=== PATIENT | male | born 1980 | race Caucasian/White ===

== ENCOUNTER 2018-02-18 15:44 | Inpatient (IN) | payer OTHER ==
[2018-02-18 17:13] VITALS: BMI 26.2
--- NOTE | 2018-02-18 20:19 | HP ---
CIWA Score - CIWA Score Nausea/Vomitin (vomiting x 8) Muscle Tremors: 4-Moderate,w/Arms Extend Anxiety: 4-Mod. Anxious/Guarded Agitation: 3 Paroxysmal Sweats: No Perspiration Orientation: 0-Oriented Tacttile Disturbances: 0-None Auditory Disturbances: 0-None Visual Disturbances: 0-None Headache: 0-None Present CIWA-Ar Total Score: 14 Admission ROS BHS - HPI Chief Complaint: Alcohol withdrawal symptoms Allergies/Adverse Reactions: Allergies Allergy/AdvReac Type Severity Reaction Status Date / Time No Known Allergies Allergy Verified 02/18/18 19:04 History of Present Illness: 37 years old male with 23 years of alcohol dependence is seeking admission to detox. Patient has been in previous detox, last at [place], [place]. He has medical history of Lung Cancer, Testicular Cancer, Depression and hypertension. Patient reports that he had head trauma a month ago from alcohol intoxication and was treated at [facility]. He denies suicide attempt and suicidal ideation at this time. This is his first admission to [facility]. Exam Limitations: No Limitations - Ebola screening Have you traveled outside of the country in the last 21 days: No Have you had contact with anyone from an Ebola affected area: No Have you been sick,other than usual withdrawal symptoms: No Do you have a fever: No - Review of Systems Constitutional: Malaise, Changes in sleep EENT: reports: No Symptoms Reported Respiratory: reports: No Symptoms reported Cardiac: reports: No Symptoms Reported GI: reports: Poor Appetite, Poor Fluid Intake, Vomiting (x 8), Abdominal cramping : reports: No Symptoms Reported Musculoskeletal: reports: No Symptoms Reported Integumentary: reports: Dryness Neuro: reports: Tremors Endocrine: reports: Flushing Hematology: reports: No Symptoms Reported Psychiatric: reports: Orientated x3, Anxious, Depressed Other Systems: Reviewed and Negative Patient History - Patient Medical History Hx Anemia: No Hx Asthma: No Hx Chronic Obstructive Pulmonary Disease (COPD): No Hx Cancer: Yes (LUNG CA & TESTICULAR CA) Hx Cardiac Disorders: No Hx Congestive Heart Failure: No Hx Hypertension: Yes (AMLODIPINE) Hx Hypercholesterolemia: No Hx Pacemaker: No HX Cerebrovascular Accident: No Hx Seizures: No Hx Dementia: No Hx Diabetes: No Hx Gastrointestinal Disorders: No Hx Liver Disease: No Hx Genitourinary Disorders: No Hx Sexually Transmitted Disorders: No Hx Renal Disease (ESRD): No Hx Thyroid Disease: No Hx Human Immunodeficiency Virus (HIV): No (NEGATIVE 2018) Hx Hepatitis C: No Hx Depression: Yes ([place]) Hx Suicide Attempt: Yes (DENIES SUICIDE ATTEMPT OR SUICIDAL IDEATION AT THIS TIME) Hx Bipolar Disorder: No Hx Schizophrenia: No - Patient Surgical History Past Surgical History: Yes Hx Neurologic Surgery: No Hx Cataract Extraction: No Hx Cardiac Surgery: No Hx Lung Surgery: Yes (DUE TO STAGE 4 CANCER) Hx Abdominal Surgery: No Hx Appendectomy: No Hx Cholecystectomy: No Hx Genitourinary Surgery: No Hx Orthopedic Surgery: No Other Surgical History: REMOVAL OF BOTH TESTICLES IN 1998 AND 2000 Anesthesia Reaction: No - PPD History Previous Implant?: Yes Documented Results: Negative w/o proof Implanted On Prior [facility] Admission?: No PPD to be Administered?: Yes - Reproductive History Patient is a Female of Child Bearing Age (11 -55 yrs old): No (MALE) - Smoking Cessation Smoking history: Current every day smoker Have you smoked in the past 12 months: Yes Aproximately how many cigarettes per day: 8 Hx Chewing Tobacco Use: No Initiated information on smoking cessation: Yes 'Breaking Loose' booklet given: 02/18/18 - Substance & Tx. History Hx Alcohol Use: Yes Hx Substance Use: Yes Substance Use Type: Marijuana Hx Substance Use Treatment: Yes ([place], [place]) - Substances Abused Alcohol Route: Oral Frequency: Daily Amount used: 13 OF 24 OZ BEER Age of first use: 12 Date of Last Use: 02/18/18 Family Disease History - Family Disease History Family History: Denies Admission Physical Exam S - Vital Signs Vital Signs: Vital Signs - 24 hr 02/18/18 02/18/18 17:12 20:06 Temperature 96.9 F L Pulse Rate 105 H 98 H Respiratory 18 18 Rate Blood Pressure 160/108 154/99 - Physical General Appearance: Yes: Moderate Distress, Tremorous, Irritable, Sweating, Anxious HEENTM: Yes: EOMI, Normal ENT Inspection, Normocephalic, Normal Voice, NINI Respiratory: Yes: Lungs Clear, Normal Breath Sounds, No Respiratory Distress, No Accessory Muscle Use Neck: Yes: Supple Breast: Yes: Breast Exam Deferred Cardiology: Yes: Tachycardia Abdominal: Yes: Normal Bowel Sounds, Soft Genitourinary: Yes: Within Normal Limits Back: Yes: Normal Inspection Musculoskeletal: Yes: Within Normal Limits Extremities: Yes: Tremors 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 NML intact, Alert Integumentary: Yes: Warm Lymphatic: Yes: Within Normal Limits - Diagnostic (1) HTN (hypertension) Current Visit: Yes Status: Chronic Qualifiers: Hypertension type: essential hypertension Qualified Code(s): I10 - Essential (primary) hypertension (2) Depression Current Visit: Yes Status: Chronic Qualifiers: Depression Type: unspecified Qualified Code(s): F32.9 - Major depressive disorder, single episode, unspecified (3) Alcohol dependence with uncomplicated withdrawal Current Visit: Yes Status: Chronic BHS Breath Alcohol Content Breath Alcohol Content: 0.055 Urine Drug Screen - Results Drug Screen Negative: No Urine Drug Screen Results: THC-Marijuana
[2018-02-18] MEDS ORDERED: guaiFENesin/D-METHORPHAN HB 10 ML UNIT-DOSE CUPS PO PRN (20:47)
[2018-02-18] MEDS ORDERED: MAGNESIUM CITRATE 300 ML BOTTLE PO PRN (20:47)
[2018-02-18] MEDS ORDERED: IBUPROFEN 400 MG TABLET (FP) PO PRN (20:47)
[2018-02-18] MEDS ORDERED: MENTHOL/PHENOL 1 EACH UD MM PRN (20:47)
[2018-02-18] MEDS ORDERED: ACETAMINOPHEN 325 MG TABLET (FP) PO PRN (20:47)
[2018-02-18] MEDS ORDERED: NICOTINE POLACRILEX 2 MG GUM BC PRN (20:47)
[2018-02-18] MEDS ORDERED: chlordiazePOXIDE HCL 25 MG CAPSULE PO PRN (20:47)
[2018-02-18] MEDS ORDERED: LOPERAMIDE HCL 2 MG CAPSULE PO PRN (20:47)
[2018-02-18] MEDS ORDERED: MAGNESIUM HYDROX 2400MG/30ML ORAL SUSPENSION 30 ML CUP PO PRN (20:47)
[2018-02-18] MEDS ORDERED: P-EPHED 60MG/TRIPROLIDI 2.5MG TABLET PO PRN (20:47)
[2018-02-18] MEDS ORDERED: MAG HYDROX/AL HYDROX/SIMETH 30 ML UNIT-DOSE CUP PO PRN (20:47)
[2018-02-18] MEDS ORDERED: cloNIDine HCL 0.1 MG TABLET PO ONE (20:59)
[2018-02-18] MEDS: THIAMINE HCL 100 MG TABLET (FP) PO SCH (21:31)
[2018-02-18] MEDS ORDERED: MELATONIN 5 MG TABLETS PO PRN (22:00)
[2018-02-18] MEDS: chlordiazePOXIDE HCL 25 MG CAPSULE PO SCH (22:03)
[2018-02-19] MEDS: chlordiazePOXIDE HCL 25 MG CAPSULE PO SCH ×4 (06:18→23:49)
[2018-02-19 10:10] LABS: HEMATOCRIT 38.8 % (35.4-49); HEMOGLOBIN 12.5 GM/dL (11.7-16.9); MCHC 32.3 g/dl (32.0-35.9); MEAN CELL VOLUME 83.5 fl (80-96); MEAN PLT VOLUME 7.2 fl (7.5-11.1); PLATELET COUNT 119 K/MM3 (134-434); RBC 4.65 M/mm3 (4.00-5.60); RDW 15.4 % (11.9-15.9); WHITE BLOOD COUNT 3.2 K/mm3 (4.0-10.0)
[2018-02-19 10:24] LABS: ALBUMIN 3.6 g/dl (3.4-5.0); ANION GAP 10 MMOL/L (8-16); BLOOD UREA NITROGEN 9 mg/dL (7-18); CALCIUM 8.3 mg/dL (8.5-10.1); CHLORIDE 105 mmol/L (98-107); CO2 27 mmol/L (21-32); GLUCOSE,RANDOM 90 mg/dL (74-106); POTASSIUM 3.9 mmol/L (3.5-5.1); SODIUM 142 mmol/L (136-145)
[2018-02-19 10:28] LABS: ALK PHOS 122 U/L (45-117); BILIRUBIN,TOTAL 0.6 mg/dL (0.2-1.0); CREATININE 1.3 mg/dL (0.7-1.3); SGOT/AST 81 U/L (15-37); SGPT/ALT 66 U/L (12-78); TOT PROT 7.3 g/dl (6.4-8.2)
[2018-02-19] MEDS: NICOTINE 14 MG/24 HOURS TOPICAL PATCH TD SCH (10:30)
[2018-02-19] MEDS: amLODIPine BESYLATE 2.5 MG TABLET (FP) PO SCH (10:30)
[2018-02-19] MEDS: PRENATAL VITAMINS W/ FOLIC ACID TABLET (FP) PO SCH (10:31)
--- NOTE | 2018-02-19 11:23 | EKG ---
Test Reason : Blood Pressure : / mmHG Vent. Rate : 069 BPM Atrial Rate : 069 BPM P-R Int : 126 ms QRS Dur : 088 ms QT Int : 398 ms P-R-T Axes : -07 060 061 degrees QTc Int : 426 ms NORMAL SINUS RHYTHM NORMAL ECG NO PREVIOUS ECGS AVAILABLE Confirmed by SOLO HUIZAR, KAMRON ([id number]) on 02/19/2018 11:22:37 AM Referred By: Nay Flanagan Confirmed By:KAMRON BANDA MD
--- NOTE | 2018-02-19 11:35 | PN ---
[facility] CIWA - CIWA Score Nausea/Vomitin-Mild Nausea/No Vomiting Muscle Tremors: 4-Moderate,w/Arms Extend Anxiety: 3 Agitation: 3 Paroxysmal Sweats: 1-Minimal Palms Moist Orientation: 1-Uncertain about Date Tacttile Disturbances: 1-Very Mild Itch/Numbness Auditory Disturbances: 0-None Visual Disturbances: 0-None Headache: 0-None Present CIWA-Ar Total Score: 14 BHS Progress Note (SOAP) Subjective: gi distress sweat tremor anxiety restlessness Objective: 02/19/18 11:36 Vital Signs Temperature 98.2 F 02/19/18 09:26 Pulse Rate 85 02/19/18 09:26 Respiratory Rate 19 02/19/18 09:26 Blood Pressure 134/89 02/19/18 09:26 O2 Sat by Pulse Oximetry (%) Laboratory Last Values WBC 3.2 K/mm3 (4.0-10.0) L 02/19/18 07:00 RBC 4.65 M/mm3 (4.00-5.60) 02/19/18 07:00 Hgb 12.5 GM/dL (11.7-16.9) 02/19/18 07:00 Hct 38.8 % (35.4-49) 02/19/18 07:00 MCV 83.5 fl (80-96) 02/19/18 07:00 MCH 27.0 pg (25.7-33.7) 02/19/18 07:00 MCHC 32.3 g/dl (32.0-35.9) 02/19/18 07:00 RDW 15.4 % (11.9-15.9) 02/19/18 07:00 Plt Count 119 K/MM3 (134-434) L 02/19/18 07:00 MPV 7.2 fl (7.5-11.1) L 02/19/18 07:00 Sodium 142 mmol/L (136-145) 02/19/18 07:00 Potassium 3.9 mmol/L (3.5-5.1) 02/19/18 07:00 Chloride 105 mmol/L (98-107) 02/19/18 07:00 Carbon Dioxide 27 mmol/L (21-32) 02/19/18 07:00 Anion Gap 10 MMOL/L (8-16) 02/19/18 07:00 BUN 9 mg/dL (7-18) 02/19/18 07:00 Creatinine 1.3 mg/dL (0.7-1.3) 02/19/18 07:00 Creat Clearance w eGFR > 60 (>60) 02/19/18 07:00 Random Glucose 90 mg/dL (74-106) 02/19/18 07:00 Calcium 8.3 mg/dL (8.5-10.1) L 02/19/18 07:00 Total Bilirubin 0.6 mg/dL (0.2-1.0) 02/19/18 07:00 AST 81 U/L (15-37) H 02/19/18 07:00 ALT 66 U/L (12-78) 02/19/18 07:00 Alkaline Phosphatase 122 U/L (45-117) H 02/19/18 07:00 Total Protein 7.3 g/dl (6.4-8.2) 02/19/18 07:00 Albumin 3.6 g/dl (3.4-5.0) 02/19/18 07:00 RPR Titer Nonreactive (NONREACTIVE) 02/19/18 07:00 lab noted Assessment: 02/19/18 11:37 withdrawal sx Plan: continue detox
[2018-02-19] MEDS: RANITIDINE HCL 150 MG TABLET (FP) PO SCH ×2 (13:21→23:48)
--- NOTE | 2018-02-19 17:53 | CONSULT ---
[facility] Psychiatric Consult - Data Date of interview: 02/19/18 Admission source: [facility] Identifying data: First admission to [facility] for this 37 y/o male self-referred for detoxification treatment for alcohol dependence.Patient is single without dependents,homeless,unemployed and supported on [facility] benefits. Substance Abuse History: Confirmed by patient in this session.Details in this [facility] report : Smoking history: Current every day smoker. Have you smoked in the past 12 months: Yes. Aproximately how many cigarettes per day: 8. Hx Chewing Tobacco Use: No. Initiated information on smoking cessation: Yes. 'Breaking Loose' booklet given: 02/18/18. - Substance & Tx. History. Hx Alcohol Use: Yes. Hx Substance Use: Yes. Substance Use Type: Marijuana. Hx Substance Use Treatment: Yes ([place], [place]). - Substances Abused. * * Alcohol. Route: Oral. Frequency: Daily. Amount used: 13 OF 24 OZ BEER. Age of first use: 12. Date of Last Use: 02/18/18 Medical History: Significant for hypertension,treatment for lung cancer ( surgery done),testicular cancer (ablation of both testicles and a recent history of head trauma (accidental fall during ETOH intoxication). Psychiatric History: No reported history of psychiatric hospitalizations.Patient reports that he is currently prescribed cymbalta 120 mg /day (by his oncologist).Mr Burr reports that he has no contact with psychiatrists (was released from halfway less than two months ago after serving a 11-month sentence).Was treated in halfway with duloxetine as well.Has hbeen on that medication for about seven consecutive years.Patient denies history of suicide attempts. Physical/Sexual Abuse/Trauma History: Patient denies history of abuse.Heavy stressors : serious medical illness (cancer),homelessness,finacial difficulties, absence of vocational skills and unemployment. Additional Comment: Urine Drug Screen Results: THC-Marijuana.Noted. Mental Status Exam - Mental Status Exam Alert and Oriented to: Time, Place, Person Cognitive Function: Good Patient Appearance: Well Groomed Mood: Withdrawn, Apprehensive Affect: Mood Congruent Patient Behavior: Fatigued, Appropriate, Cooperative Speech Pattern: Clear, Appropriate Voice Loudness: Normal Thought Process: Intact, Goal Oriented Thought Disorder: Not Present Hallucinations: Denies Suicidal Ideation: Denies Homicidal Ideation: Denies Insight/Judgement: Poor Sleep: Well Appetite: Good Muscle strength/Tone: Normal Gait/Station: Normal Psychiatric Findings - Problem List (Gonzales 1, 2,3) (1) Alcohol dependence with uncomplicated withdrawal Current Visit: Yes Status: Acute (2) Cannabis dependence Current Visit: Yes Status: Acute (3) Nicotine dependence Current Visit: Yes Status: Acute (4) Substance induced mood disorder Current Visit: Yes Status: Acute (5) Depressive disorder Current Visit: Yes Status: Chronic - Initial Treatment Plan Initial Treatment Plan: Psychoeducation.Sleep hygiene.Detoxification in progress.Support.Resume duloxetine 120 mg po daily (confirmed by pharmacy claims of 02/09/18 at [facility]).Side effects/benefits discussed with the patient.Mr Tamayo agrees to this careplan.Observation.
[2018-02-19] MEDS: THIAMINE HCL 100 MG TABLET (FP) PO SCH (23:48)
[2018-02-20] MEDS: chlordiazePOXIDE HCL 25 MG CAPSULE PO SCH ×3 (05:59→17:40)
[2018-02-20] MEDS: PRENATAL VITAMINS W/ FOLIC ACID TABLET (FP) PO SCH (10:39)
[2018-02-20] MEDS: RANITIDINE HCL 150 MG TABLET (FP) PO SCH ×2 (10:39→22:43)
[2018-02-20] MEDS: NICOTINE 14 MG/24 HOURS TOPICAL PATCH TD SCH (10:40)
[2018-02-20] MEDS: amLODIPine BESYLATE 2.5 MG TABLET (FP) PO SCH (10:40)
[2018-02-20] MEDS: DULoxetine HCL 60 MG CAPSULE.DR PO SCH (10:40)
--- NOTE | 2018-02-20 14:07 | PN ---
[facility] CIWA - CIWA Score Nausea/Vomitin-No Nausea/No Vomiting Muscle Tremors: 4-Moderate,w/Arms Extend Anxiety: 3 Agitation: 3 Paroxysmal Sweats: 1-Minimal Palms Moist Orientation: 0-Oriented Tacttile Disturbances: 1-Very Mild Itch/Numbness Auditory Disturbances: 0-None Visual Disturbances: 0-None Headache: 0-None Present CIWA-Ar Total Score: 12 BHS Progress Note (SOAP) Subjective: tremor sweat restlessness irritable Objective: 02/20/18 14:08 Vital Signs Temperature 98.2 F 02/20/18 13:15 Pulse Rate 80 02/20/18 13:15 Respiratory Rate 18 02/20/18 13:15 Blood Pressure 137/84 02/20/18 13:15 O2 Sat by Pulse Oximetry (%) Laboratory Last Values WBC 3.2 K/mm3 (4.0-10.0) L 02/19/18 07:00 RBC 4.65 M/mm3 (4.00-5.60) 02/19/18 07:00 Hgb 12.5 GM/dL (11.7-16.9) 02/19/18 07:00 Hct 38.8 % (35.4-49) 02/19/18 07:00 MCV 83.5 fl (80-96) 02/19/18 07:00 MCH 27.0 pg (25.7-33.7) 02/19/18 07:00 MCHC 32.3 g/dl (32.0-35.9) 02/19/18 07:00 RDW 15.4 % (11.9-15.9) 02/19/18 07:00 Plt Count 119 K/MM3 (134-434) L 02/19/18 07:00 MPV 7.2 fl (7.5-11.1) L 02/19/18 07:00 Sodium 142 mmol/L (136-145) 02/19/18 07:00 Potassium 3.9 mmol/L (3.5-5.1) 02/19/18 07:00 Chloride 105 mmol/L (98-107) 02/19/18 07:00 Carbon Dioxide 27 mmol/L (21-32) 02/19/18 07:00 Anion Gap 10 MMOL/L (8-16) 02/19/18 07:00 BUN 9 mg/dL (7-18) 02/19/18 07:00 Creatinine 1.3 mg/dL (0.7-1.3) 02/19/18 07:00 Creat Clearance w eGFR > 60 (>60) 02/19/18 07:00 Random Glucose 90 mg/dL (74-106) 02/19/18 07:00 Calcium 8.3 mg/dL (8.5-10.1) L 02/19/18 07:00 Total Bilirubin 0.6 mg/dL (0.2-1.0) 02/19/18 07:00 AST 81 U/L (15-37) H 02/19/18 07:00 ALT 66 U/L (12-78) 02/19/18 07:00 Alkaline Phosphatase 122 U/L (45-117) H 02/19/18 07:00 Total Protein 7.3 g/dl (6.4-8.2) 02/19/18 07:00 Albumin 3.6 g/dl (3.4-5.0) 02/19/18 07:00 RPR Titer Nonreactive (NONREACTIVE) 02/19/18 07:00 HIV 1&2 Antibody Screen Negative 02/19/18 07:00 HIV P24 Antigen Negative 02/19/18 07:00 lab noted Assessment: 02/20/18 14:10 withdrawal sx Plan: continue detox
[2018-02-20] MEDS: THIAMINE HCL 100 MG TABLET (FP) PO SCH (22:43)
[2018-02-20] MEDS: chlordiazePOXIDE 5 MG CAPSULE PO SCH (22:43)
[2018-02-21] MEDS: chlordiazePOXIDE 5 MG CAPSULE PO SCH ×3 (05:40→17:15)
[2018-02-21] MEDS ORDERED: hydrOXYzine PAMOATE 25 MG CAPSULE (FP) PO PRN (09:54)
[2018-02-21] MEDS: PRENATAL VITAMINS W/ FOLIC ACID TABLET (FP) PO SCH (10:29)
[2018-02-21] MEDS: amLODIPine BESYLATE 2.5 MG TABLET (FP) PO SCH (10:29)
[2018-02-21] MEDS: DULoxetine HCL 60 MG CAPSULE.DR PO SCH (10:29)
[2018-02-21] MEDS: RANITIDINE HCL 150 MG TABLET (FP) PO SCH ×2 (10:29→23:06)
[2018-02-21] MEDS: NICOTINE 14 MG/24 HOURS TOPICAL PATCH TD SCH (10:31)
--- NOTE | 2018-02-21 12:18 | PN ---
BHS Progress Note (SOAP) Subjective: sweats , increasing anxiety Objective: 02/21/18 12:17 Vital Signs Temperature 97.2 F L 02/21/18 09:42 Pulse Rate 108 H 02/21/18 09:42 Respiratory Rate 16 02/21/18 09:42 Blood Pressure 143/93 02/21/18 09:42 O2 Sat by Pulse Oximetry (%) 97% 02/21/18 12:24 Laboratory Tests 02/19/18 02/19/18 02/19/18 07:00 07:00 07:00 WBC 3.2 L RBC 4.65 Hgb 12.5 Hct 38.8 MCV 83.5 MCH 27.0 MCHC 32.3 RDW 15.4 Plt Count 119 L MPV 7.2 L Sodium 142 Potassium 3.9 Chloride 105 Carbon Dioxide 27 Anion Gap 10 BUN 9 Creatinine 1.3 Creat Clearance w eGFR > 60 Random Glucose 90 Calcium 8.3 L Total Bilirubin 0.6 AST 81 H ALT 66 Alkaline Phosphatase 122 H Total Protein 7.3 Albumin 3.6 RPR Titer HIV 1&2 Antibody Screen Negative HIV P24 Antigen Negative 02/19/18 07:00 WBC RBC Hgb Hct MCV MCH MCHC RDW Plt Count MPV Sodium Potassium Chloride Carbon Dioxide Anion Gap BUN Creatinine Creat Clearance w eGFR Random Glucose Calcium Total Bilirubin AST ALT Alkaline Phosphatase Total Protein Albumin RPR Titer Nonreactive HIV 1&2 Antibody Screen HIV P24 Antigen pt aox3 in nad ambulating well lungs clear to a/p cor tachy 104/m mo m r or gallop Assessment: 02/21/18 12:29 withdrawal sx's anxiety Plan: cont. detox increase fluids clonidine 0.1mg now
[2018-02-21] MEDS ORDERED: cloNIDine HCL 0.1 MG TABLET PO ONE (12:40)
[2018-02-21] MEDS: THIAMINE HCL 100 MG TABLET (FP) PO SCH (23:06)
[2018-02-21] MEDS: chlordiazePOXIDE HCL 10 MG CAPSULE PO SCH (23:07)
[2018-02-22] MEDS: chlordiazePOXIDE HCL 10 MG CAPSULE PO SCH ×2 (05:35→10:54)
--- NOTE | 2018-02-22 08:53 | DS ---
[facility] Detox Discharge Summary Admission Date: 02/18/18 Discharge Date: 02/22/18 - History Present History: Alcohol Dependence Additional Comments: 37 years old male admitted on 02/18/18 for alcohol withdrawal sx completed alcohol withdrawal sx tolerated well denies alcohol withdrawal sx alert oriented x 3 no acute distress [facility] - Physical Exam Results Vital Signs: Vital Signs Temperature 97.5 F L 02/22/18 06:00 Pulse Rate 65 02/22/18 06:00 Respiratory Rate 02/22/18 06:00 Blood Pressure 112/74 02/22/18 06:00 O2 Sat by Pulse Oximetry (%) Pertinent Admission Physical Exam Findings: [facility] Hospital Course: Detox Protocol Followed, Detoxed Safely, Responded well, Discharged Condition Good, Rehab Referral Accepted Patient has Accepted a Rehab Referral to: [facility] - Medication Discharge Medications: Ambulatory Orders Amlodipine Besylate [Norvasc -] 2.5 mg PO DAILY 02/18/18 Duloxetine HCl [Cymbalta] 120 mg PO DAILY 02/18/18 - Diagnosis (1) Substance induced mood disorder Current Visit: Yes Status: Suspected (2) Alcohol dependence with uncomplicated withdrawal Current Visit: Yes Status: Acute (3) HTN (hypertension) Current Visit: Yes Status: Chronic Qualifiers: Hypertension type: essential hypertension Qualified Code(s): I10 - Essential (primary) hypertension (4) Nicotine dependence Current Visit: Yes Status: Acute Qualifiers: Nicotine product type: cigarettes Substance use status: in withdrawal Qualified Code(s): F17.213 - Nicotine dependence, cigarettes, with withdrawal - AMA Did Patient Leave Against Medical Advice: No
[2018-02-22] MEDS: PRENATAL VITAMINS W/ FOLIC ACID TABLET (FP) PO SCH (10:53)
[2018-02-22] MEDS: amLODIPine BESYLATE 2.5 MG TABLET (FP) PO SCH (10:53)
[2018-02-22] MEDS: DULoxetine HCL 60 MG CAPSULE.DR PO SCH (10:53)
[2018-02-22] MEDS: RANITIDINE HCL 150 MG TABLET (FP) PO SCH (10:53)
[2018-02-22] MEDS: NICOTINE 14 MG/24 HOURS TOPICAL PATCH TD SCH (10:54)
[2018-02-22 13:57] VITALS: BP 145/85; PULSE 74; TEMP 96.3
== END 2018-02-22 03:17 | disposition home or self-care (01) | DRG 897 ==
LOC: YASAS 15:44 → Y6N 20:12
PROC: HZ2ZZZZ Detoxification Services for Substance Abuse Treatment (ICD-10-PCS; principal; 2018-02-18)
DX: F10.230 Alcohol dependence with withdrawal, uncomplicated (principal); F12.20 Cannabis dependence, uncomplicated; F17.213 Nicotine dependence, cigarettes, with withdrawal; F19.24 Other psychoactive substance dependence with psychoactive substance-induced mood disorder; F32.9 Major depressive disorder, single episode, unspecified; I10 Essential (primary) hypertension; Z85.118 Personal history of other malignant neoplasm of bronchus and lung; Z85.47 Personal history of malignant neoplasm of testis; Z91.5 Personal history of self-harm; Z90.79 Acquired absence of other genital organ(s)
CPT/HCPCS: 36415; 80053; 85027; 86593; 87389; 93005; 93010; J0735

== ENCOUNTER 2018-05-15 15:30 | Inpatient (IN) | payer OTHER ==
[2018-05-15 21:14] VITALS: BMI 27.0
--- NOTE | 2018-05-16 00:01 | HP ---
"CIWA Score Nausea/Vomitin-Mild Nausea/No Vomiting Muscle Tremors: 4-Moderate,w/Arms Extend Anxiety: 1-Mildly Anxious Agitation: 4-Moderately Restless Paroxysmal Sweats: 1-Minimal Palms Moist (Facial moisture) Orientation: 0-Oriented Tacttile Disturbances: 0-None Auditory Disturbances: 0-None Visual Disturbances: 0-None Headache: 2-Mild CIWA-Ar Total Score: 13 - Admission Criteria OASAS Guidelines: Admission for Medically Managed Detox: Requires at least one of the followin. CIWA greater than 12 2. Seizures within the past 24 hours 3. Delirium tremens within the past 24 hours 4. Hallucinations within the past 24 hours 5. Acute intervention needed for co occurring medical disorder 6. Acute intervention needed for co occurring psychiatric disorder 7. Severe withdrawal that cannot be handled at a lower level of care (continued vomiting, continued diarrhea, abnormal vital signs) requiring intravenous medication and/or fluids 8. Patient presents the following: CIWA greater than 12 Admission Criteria Met: Admission criteria met Admission ROS [facility] Chief Complaint: Hx alcohol withdrawal. Allergies/Adverse Reactions: Allergies Allergy/AdvReac Type Severity Reaction Status Date / Time No Known Allergies Allergy Verified 05/15/18 21:40 History of Present Illness: Alcohol use at age 13. Nicotine use at age 13 (down to 5 cig/day) Marijuana use at age 14. Uses 3 x/wk. Lung and testicular Cancer at age [age] w/ orchiectomy and partial (L) lobectomy and (R) wedge resection. Being f/u at [facility]. (R) chest internal port for chemo. Not currently on chemo. No flush needed for another 40 days. Feel and scraped (R) hand, (R) knee and bruised (L) hand. Hx: HTN on [facility] Search Terms: Bishop Tamayo, 1980 Search Date: 05/16/2018 12:00:35 AM The Drug Utilization Report below displays all of the controlled substance prescriptions, if any, that your patient has filled in the last twelve months. The information displayed on this report is compiled from pharmacy submissions to the Department, and accurately reflects the information as submitted by the pharmacies. This report was requested by: Karen Barnes | Reference #: [id number] Others' Prescriptions Patient Name: Bishop Tamayo Date: 1980 Address: [address] [place] [address] Sex: Male Rx Written Rx Dispensed Drug Quantity Days Supply Prescriber Name 03/10/2018 03/10/2018 oxycodone hcl 5 mg tablet 20 4 EduardoJacob garza Patient Name: Bishop Tamayo Date: 1980 Address: [address] [place] [address] Sex: Male Rx Written Rx Dispensed Drug Quantity Days Supply Prescriber Name 11/14/2017 11/14/2017 testosterone cyp 200 mg/ml 2 30 Isabela Castillo (M D ) 11/11/2017 11/11/2017 testosterone cyp 200 mg/ml 2 30 Isabela Castillo (M D ) 08/14/2017 08/15/2017 testosterone cyp 200 mg/ml 2 28 Isabela Castillo (M D ) Exam Limitations: No Limitations - Ebola screening Have you traveled outside of the country in the last 21 days: No (N) Have you had contact with anyone from an Ebola affected area: No Have you been sick,other than usual withdrawal symptoms: No Do you have a fever: No - Review of Systems Constitutional: Chills, Diaphoresis EENT: reports: No Symptoms Reported Respiratory: reports: No Symptoms reported, Other Cardiac: reports: No Symptoms Reported GI: reports: Nausea : reports: No Symptoms Reported Musculoskeletal: reports: Joint Pain ((R) knee pain - fell 04/14/18,) Integumentary: reports: Bruising (Scrape (R) knee and (R) hand), Other ((R) chest internal port for chemo. Not currently on chemo.) Neuro: reports: Headache, Tremors Endocrine: reports: Increased Thirst Hematology: reports: Blood Clots (5 years ago: Legs and PE) Psychiatric: reports: Judgement Intact, Mood/Affect Appropiate, Orientated x3, Agitated, Anxious, Depressed (Denies thoughts of harming self or others) Patient History - Patient Medical History Hx Anemia: No Hx Asthma: No Hx Chronic Obstructive Pulmonary Disease (COPD): No Hx Cancer: Yes (LUNG CA & TESTICULAR CA) Hx Cardiac Disorders: No Hx Congestive Heart Failure: No Hx Hypertension: Yes (AMLODIPINE) Hx Hypercholesterolemia: No Hx Pacemaker: No HX Cerebrovascular Accident: No Hx Seizures: No Hx Dementia: No Hx Diabetes: No Hx Gastrointestinal Disorders: No Hx Liver Disease: No Hx Genitourinary Disorders: No Hx Sexually Transmitted Disorders: No Hx Renal Disease (ESRD): No Hx Thyroid Disease: No Hx Human Immunodeficiency Virus (HIV): No (NEGATIVE 2018) Hx Hepatitis C: No Hx Depression: Yes (SYMBALTA) Hx Suicide Attempt: Yes (DENIES SUICIDE ATTEMPT OR SUICIDAL IDEATION AT THIS TIME) Hx Bipolar Disorder: No Hx Schizophrenia: No - Patient Surgical History Past Surgical History: Yes Hx Neurologic Surgery: No Hx Cataract Extraction: No Hx Cardiac Surgery: No Hx Lung Surgery: Yes (DUE TO STAGE 4 CANCER) Hx Abdominal Surgery: No Hx Appendectomy: No Hx Cholecystectomy: No Hx Genitourinary Surgery: No Hx Orthopedic Surgery: No Other Surgical History: REMOVAL OF BOTH TESTICLES IN 1998 AND 2000 Anesthesia Reaction: No - PPD History Previous Implant?: Yes Documented Results: Negative w/proof Implanted On Prior [facility] Admission?: Yes Date: 02/20/18 PPD to be Administered?: No - Smoking Cessation Smoking history: Current every day smoker Have you smoked in the past 12 months: Yes Aproximately how many cigarettes per day: 8 Hx Chewing Tobacco Use: No Initiated information on smoking cessation: Yes 'Breaking Loose' booklet given: 05/16/18 - Substance & Tx. History Hx Alcohol Use: Yes Hx Substance Use: Yes Substance Use Type: Alcohol, Marijuana Hx Substance Use Treatment: Yes (rehab) - Substances Abused Alcohol Route: Oral Frequency: Daily Amount used: LIQUOR- 2 PINTS, BEER- 1/2 CASE Age of first use: 13 Date of Last Use: 05/15/18 Marijuana/Hashish Route: Smoking Frequency: 1-2 times per week Age of first use: 14 Date of Last Use: 05/15/18 Admission Physical Exam BHS - Vital Signs Vital Signs: Vital Signs - 24 hr 05/15/18 21:12 Temperature 96.5 F L Pulse Rate 88 Respiratory 18 Rate Blood Pressure 127/77 - Physical General Appearance: Yes: Appropriately Dressed, Mild Distress, Tremorous, Sweating, Anxious HEENTM: Yes: EOMI, Hearing grossly Normal, Normal ENT Inspection, Normal Voice, NINI Respiratory: Yes: Lungs Clear, Normal Breath Sounds, No Respiratory Distress, Surgical Scar Neck: Yes: No masses,lesions,Nodules, Supple Breast: Yes: Breast Exam Deferred Cardiology: Yes: Regular Rhythm, Regular Rate, S1, S2 Abdominal: Yes: Flat, Soft, Increased Bowel Sounds, Tenderness (RUQ tenderness upon deep palpation. No guarding or rebound tenderness) Genitourinary: Yes: Within Normal Limits Back: Yes: Normal Inspection Musculoskeletal: Yes: full range of Motion, Gait Steady (but favoring (R) leg), Joint swelling ((R) knee some swelling. FROM and FWB), Other (Increased ecchymosis (L) palm and wrist. FROM. No crepitus. 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 Superficial abrasions (R) hand and (R) knee w/o drainage) Lymphatic: Yes: Within Normal Limits - Diagnostic (1) Alcohol dependence with uncomplicated withdrawal Current Visit: Yes Status: Acute (2) Nicotine dependence Current Visit: Yes Status: Chronic Qualifiers: Nicotine product type: cigarettes Substance use status: in withdrawal Qualified Code(s): F17.213 - Nicotine dependence, cigarettes, with withdrawal (3) Cannabis dependence Current Visit: Yes Status: Chronic (4) HTN (hypertension) Current Visit: Yes Status: Chronic Qualifiers: Hypertension type: essential hypertension Qualified Code(s): I10 - Essential (primary) hypertension (5) Abrasion Current Visit: Yes Status: Acute Comment: Superficial abrasion (R) hand and (R) knee. FROM (6) Presence of other vascular implants and grafts Current Visit: Yes Status: Chronic Comment: Chemo port (R) subclavain/chest area. (7) Personal history of other malignant neoplasm of bronchus and lung Current Visit: No Status: Inactive Comment: S/p partial lobectomy and wedge resection. (8) Personal history of malignant neoplasm of testis Current Visit: No Status: Inactive Comment: S/p orchiectomy Cleared for Admission [facility] - Detox or Rehab [facility] Level of Care: Medically Managed Detox Regimen/Protocol: Librium BHS Breath Alcohol Content Breath Alcohol Content: 0 Urine Drug Screen - Results Drug Screen Negative: No Urine Drug Screen Results: THC-Marijuana"
[2018-05-16] MEDS ORDERED: chlordiazePOXIDE HCL 25 MG CAPSULE PO ONE (00:37)
[2018-05-16] MEDS ORDERED: NICOTINE POLACRILEX 2 MG GUM BC PRN (00:37)
[2018-05-16] MEDS ORDERED: MENTHOL/PHENOL 1 EACH UD MM PRN (00:37)
[2018-05-16] MEDS ORDERED: MAGNESIUM CITRATE 300 ML BOTTLE PO PRN (00:37)
[2018-05-16] MEDS ORDERED: LOPERAMIDE HCL 2 MG CAPSULE PO PRN (00:37)
[2018-05-16] MEDS ORDERED: MAG HYDROX/AL HYDROX/SIMETH 30 ML UNIT-DOSE CUP PO PRN (00:37)
[2018-05-16] MEDS ORDERED: MAGNESIUM HYDROX 2400MG/30ML ORAL SUSPENSION 30 ML CUP PO PRN (00:37)
[2018-05-16] MEDS: BACITRACIN 0.9 GM PACKET TP SCH ×3 (01:08→22:27)
[2018-05-16] MEDS: chlordiazePOXIDE HCL 25 MG CAPSULE PO SCH ×4 (06:00→22:16)
[2018-05-16] MEDS: PRENATAL VITAMINS W/ FOLIC ACID TABLET (FP) PO SCH (10:08)
[2018-05-16] MEDS: IBUPROFEN 400 MG TABLET (FP) PO PRN ×2 (10:09→16:34)
[2018-05-16 10:54] LABS: ALBUMIN 3.6 g/dl (3.4-5.0); ALK PHOS 112 U/L (45-117); ANION GAP 10 MMOL/L (8-16); BILIRUBIN,TOTAL 0.5 mg/dL (0.2-1); BLOOD UREA NITROGEN 20 mg/dL (7-18); CALCIUM 8.2 mg/dL (8.5-10.1); CHLORIDE 103 mmol/L (98-107); CO2 28 mmol/L (21-32); CREATININE 1.5 mg/dL (0.55-1.3); GLUCOSE,RANDOM 104 mg/dL (74-106); SGOT/AST 33 U/L (15-37); SGPT/ALT 24 U/L (13-61); SODIUM 141 mmol/L (136-145)
[2018-05-16] MEDS: amLODIPine BESYLATE 2.5 MG TABLET (FP) PO SCH (10:56)
[2018-05-16 10:58] LABS: HEMATOCRIT 36.7 % (35.4-49); HEMOGLOBIN 11.7 GM/dL (11.7-16.9); MCH 27.2 pg (25.7-33.7); MEAN PLT VOLUME 7.3 fl (7.5-11.1); PLATELET COUNT 137 K/MM3 (134-434); RBC 4.31 M/mm3 (4.00-5.60); RDW 16.1 % (11.9-15.9); WHITE BLOOD COUNT 5.5 K/mm3 (4.0-10.0)
[2018-05-16] MEDS: chlordiazePOXIDE HCL 25 MG CAPSULE PO PRN (12:57)
--- NOTE | 2018-05-16 14:12 | CONSULT ---
[facility] Psychiatric Consult - Data Date of interview: 05/16/18 Admission source: [facility] Identifying data: Readmission to [facility] for this 38 y/o male, self- referred for detoxification treatment, for alcohol, cannabis and opioid dependence. Patient is single without dependents, homeless, unemployed and supported on SSD benefits. Substance Abuse History: Confirmed by the patient in this session. Details in current [facility] report : Smoking history: Current every day smoker. Have you smoked in the past 12 months: Yes. Aproximately how many cigarettes per day: 8. Hx Chewing Tobacco Use: No. Initiated information on smoking cessation: Yes. 'Breaking Loose' booklet given: 05/16/18. - Substance & Tx. History. Hx Alcohol Use: Yes. Hx Substance Use: Yes. Substance Use Type: Alcohol, Marijuana. Hx Substance Use Treatment: Yes (rehab). - Substances Abused. Alcohol. Route: Oral. Frequency: Daily. Amount used: LIQUOR- 2 PINTS, BEER- 1 /2 CASE. Age of first use: 13. Date of Last Use: 05/15/18. Marijuana/ Hashish. Route: Smoking. Frequency: 1-2 times per week. Age of first use: 14. Date of Last Use: 05/15/18 Medical History: Hypertension, recent treatment for lung cancer (surgery at age 33), testicular cancer (ablation of both testicles). Orchiectomy and partial (L ) lobectomy and (R) wedge resection. Patient is followed at the [facility]. Right chest internal port for chemotherapy. Not currently on chemotherapy. Psychiatric History: Patient admits to a history of one psychiatric hospitalization at [facility] ([facility] in [facility]. Discharged on 05/08/18 after 17 days of retention. Diagnosed with MDD and treated with cymbalta 120 mg/day. Sub-optimal adherence to medications and non compliant with psychiatric OPD clinic appointments (refills for cymbalta are usually issued by patient's oncologist). Reportedly on that medication for more than seven years. Patient denies history of suicide attempts. Physical/Sexual Abuse/Trauma History: Patient denies history of abuse.Heavy stressors : serious medical illness (cancer),homelessness,finacial difficulties, absence of vocational skills and unemployment. Additional Comment: Urine Drug Screen Results: THC-Marijuana. Noted. Mental Status Exam - Mental Status Exam Alert and Oriented to: Time, Place, Person Cognitive Function: Good Patient Appearance: Well Groomed Mood: Nervous, Withdrawn, Anxious Affect: Mood Congruent, Constricted Patient Behavior: Fatigued, Appropriate, Cooperative Speech Pattern: Clear, Appropriate Voice Loudness: Normal Thought Process: Goal Oriented Thought Disorder: Not Present Hallucinations: Denies Suicidal Ideation: Denies Homicidal Ideation: Denies Insight/Judgement: Poor Sleep: Poorly, Difficulty falling asleep Appetite: Good Muscle strength/Tone: Normal Gait/Station: Normal Psychiatric Findings - Problem List (Irving 1, 2,3) (1) Alcohol dependence with uncomplicated withdrawal Current Visit: Yes Status: Acute (2) Cannabis dependence Current Visit: Yes Status: Acute (3) Nicotine dependence Current Visit: Yes Status: Acute Qualifiers: Nicotine product type: cigarettes Substance use status: in withdrawal Qualified Code(s): F17.213 - Nicotine dependence, cigarettes, with withdrawal (4) Depressive disorder Current Visit: Yes Status: Chronic (5) Substance induced mood disorder Current Visit: Yes Status: Chronic (6) Insomnia Current Visit: Yes Status: Chronic (7) Non-compliant patient Current Visit: Yes Status: Chronic - Initial Treatment Plan Initial Treatment Plan: Psychoeducation. Sleep hygiene. Detoxification. AA/NA meetings. Insomnia is addressed with melatonin at bedtime. Duloxetine 120 mg po daily. Resumed. Side efffects/benefits discussed with the patient. Mr Tamayo is in agreement with this plan of care. Observation.
--- NOTE | 2018-05-16 16:09 | PN ---
[facility] Progress Note Note: Patient admitted for alcohol dependence. Patient tolerating detox protocol well. Patient c/o withdrawal symptoms: nausea, feeling lightheaded, stomach ache , sweating, headache (6/10), interrupted sleep. Patient encouraged to continue detox and to request his prn medications to help alleviate withdrawal symptoms and to drink adequate amount of water for hydration.
[2018-05-16] MEDS ORDERED: MELATONIN 5 MG TABLETS PO PRN (22:00)
[2018-05-16] MEDS: THIAMINE HCL 100 MG TABLET (FP) PO SCH (22:16)
[2018-05-17] MEDS: chlordiazePOXIDE HCL 25 MG CAPSULE PO SCH ×4 (05:05→22:22)
[2018-05-17] MEDS: IBUPROFEN 400 MG TABLET (FP) PO PRN (05:06)
[2018-05-17] MEDS: amLODIPine BESYLATE 2.5 MG TABLET (FP) PO SCH (10:05)
[2018-05-17] MEDS: DULoxetine HCL 60 MG CAPSULE.DR PO SCH (10:05)
[2018-05-17] MEDS: BACITRACIN 0.9 GM PACKET TP SCH ×2 (10:05→22:22)
[2018-05-17] MEDS: PRENATAL VITAMINS W/ FOLIC ACID TABLET (FP) PO SCH (10:05)
[2018-05-17] MEDS: ACETAMINOPHEN 325 MG TABLET (FP) PO PRN ×2 (10:08→17:33)
[2018-05-17] MEDS: chlordiazePOXIDE HCL 25 MG CAPSULE PO PRN (14:46)
--- NOTE | 2018-05-17 15:47 | PN ---
[facility] CIWA - CIWA Score Nausea/Vomitin Muscle Tremors: 4-Moderate,w/Arms Extend Anxiety: 4-Mod. Anxious/Guarded Agitation: 2 Paroxysmal Sweats: 3 Orientation: 0-Oriented Tacttile Disturbances: 0-None Auditory Disturbances: 0-None Visual Disturbances: 0-None Headache: 1-Very Mild CIWA-Ar Total Score: 16 S Progress Note (SOAP) Subjective: Sweating, chills, interrupted sleep Objective: 05/17/18 15:41 Last Vital Signs Temp Pulse Resp BP Pulse Ox 97.4 F L 71 17 113/69 05/17/18 13:37 05/17/18 13:37 05/17/18 13:37 05/17/18 13:37 Laboratory Tests 05/16/18 05/16/18 05/16/18 07:00 07:00 07:00 WBC 5.5 RBC 4.31 Hgb 11.7 Hct 36.7 MCV 85.0 MCH 27.2 MCHC 32.0 RDW 16.1 H Plt Count 137 MPV 7.3 L Sodium 141 Potassium 4.0 Chloride 103 Carbon Dioxide 28 Anion Gap 10 BUN 20 H Creatinine 1.5 H Creat Clearance w eGFR 52.10 Random Glucose 104 Calcium 8.2 L Total Bilirubin 0.5 AST 33 ALT 24 Alkaline Phosphatase 112 Total Protein 7.0 Albumin 3.6 RPR Titer HIV 1&2 Antibody Screen Negative HIV P24 Antigen Negative 05/16/18 07:00 WBC RBC Hgb Hct MCV MCH MCHC RDW Plt Count MPV Sodium Potassium Chloride Carbon Dioxide Anion Gap BUN Creatinine Creat Clearance w eGFR Random Glucose Calcium Total Bilirubin AST ALT Alkaline Phosphatase Total Protein Albumin RPR Titer Nonreactive HIV 1&2 Antibody Screen HIV P24 Antigen Labs reviewed: plt 137, bun 20, creatinine 1.5, GFR 52.10 Assessment: 05/17/18 15:45 Withdrawal symptoms Noted with mild thrombocytopenia and DENISE Plan: Continue detox Mild thrombocytopenia: stable, probably due to alcohol dependence, follow up with PCP for monitoring DENISE: encouraged PO water intake, repeat bmp
[2018-05-17] MEDS: THIAMINE HCL 100 MG TABLET (FP) PO SCH (22:22)
[2018-05-18] MEDS: chlordiazePOXIDE 5 MG CAPSULE PO SCH ×4 (05:18→22:19)
[2018-05-18] MEDS: IBUPROFEN 400 MG TABLET (FP) PO PRN ×2 (07:28→17:08)
[2018-05-18] MEDS: chlordiazePOXIDE HCL 25 MG CAPSULE PO PRN ×2 (08:34→14:16)
[2018-05-18] MEDS: DULoxetine HCL 60 MG CAPSULE.DR PO SCH (10:07)
[2018-05-18] MEDS: BACITRACIN 0.9 GM PACKET TP SCH ×2 (10:07→22:19)
[2018-05-18] MEDS: PRENATAL VITAMINS W/ FOLIC ACID TABLET (FP) PO SCH (10:07)
[2018-05-18] MEDS: amLODIPine BESYLATE 2.5 MG TABLET (FP) PO SCH (10:07)
--- NOTE | 2018-05-18 10:45 | PN ---
S CIWA - CIWA Score Nausea/Vomitin-Mild Nausea/No Vomiting Muscle Tremors: 3 Anxiety: 2 Agitation: 2 Paroxysmal Sweats: 2 Orientation: 0-Oriented Tacttile Disturbances: 0-None Auditory Disturbances: 0-None Visual Disturbances: 0-None Headache: 0-None Present CIWA-Ar Total Score: 10 BHS Progress Note (SOAP) Subjective: PATIENT PRESENTS NAUSEA/DIARRHEA, SWEATING AND TREMORS. Objective: 05/18/18 10:43 Vital Signs Temperature 98.1 F 05/18/18 09:12 Pulse Rate 102 H 05/18/18 09:12 Respiratory Rate 20 05/18/18 09:12 Blood Pressure 123/85 05/18/18 09:12 O2 Sat by Pulse Oximetry (%) Laboratory Tests 05/16/18 05/16/18 05/16/18 07:00 07:00 07:00 WBC 5.5 RBC 4.31 Hgb 11.7 Hct 36.7 MCV 85.0 MCH 27.2 MCHC 32.0 RDW 16.1 H Plt Count 137 MPV 7.3 L Sodium 141 Potassium 4.0 Chloride 103 Carbon Dioxide 28 Anion Gap 10 BUN 20 H Creatinine 1.5 H Creat Clearance w eGFR 52.10 Random Glucose 104 Calcium 8.2 L Total Bilirubin 0.5 AST 33 ALT 24 Alkaline Phosphatase 112 Total Protein 7.0 Albumin 3.6 RPR Titer HIV 1&2 Antibody Screen Negative HIV P24 Antigen Negative 05/16/18 07:00 WBC RBC Hgb Hct MCV MCH MCHC RDW Plt Count MPV Sodium Potassium Chloride Carbon Dioxide Anion Gap BUN Creatinine Creat Clearance w eGFR Random Glucose Calcium Total Bilirubin AST ALT Alkaline Phosphatase Total Protein Albumin RPR Titer Nonreactive HIV 1&2 Antibody Screen HIV P24 Antigen PE: ALERT AND ORIENTED X 3 SKIN WARM, +SWEATING ON FOREHEAD EXT FULL ROM, NO EDEMA, +TREMORS AMB AD AGUILAR Assessment: 05/18/18 10:45 WITHDRAWAL SX Plan: CONTINUE DETOX ENCOURAGE ORAL FLUIDS ADD CLONIDINE 0.1MG DAILY CONTINUE VISTARIL PRN CONTINUE TO MONITOR CLINICALLY
[2018-05-18 11:30] LABS: ANION GAP 10 MMOL/L (8-16); BLOOD UREA NITROGEN 21 mg/dL (7-18); CALCIUM 8.4 mg/dL (8.5-10.1); CHLORIDE 103 mmol/L (98-107); CO2 26 mmol/L (21-32); CREATININE 1.3 mg/dL (0.55-1.3); GLUCOSE,RANDOM 85 mg/dL (74-106); POTASSIUM 4.2 mmol/L (3.5-5.1); SODIUM 140 mmol/L (136-145)
[2018-05-18] MEDS: cloNIDine HCL 0.1 MG TABLET PO SCH (14:16)
[2018-05-18] MEDS: THIAMINE HCL 100 MG TABLET (FP) PO SCH (22:19)
[2018-05-19] MEDS: chlordiazePOXIDE HCL 10 MG CAPSULE PO SCH ×4 (06:03→22:49)
[2018-05-19] MEDS ORDERED: CYCLOBENZAPRINE HCL 10 MG TABLET (FP) PO ONE (09:35)
[2018-05-19] MEDS: BACITRACIN 0.9 GM PACKET TP SCH ×2 (10:08→22:49)
[2018-05-19] MEDS: cloNIDine HCL 0.1 MG TABLET PO SCH (10:08)
[2018-05-19] MEDS: amLODIPine BESYLATE 2.5 MG TABLET (FP) PO SCH (10:09)
[2018-05-19] MEDS: DULoxetine HCL 60 MG CAPSULE.DR PO SCH (10:09)
[2018-05-19] MEDS: hydrOXYzine PAMOATE 50 MG CAPSULE (FP) PO PRN (10:10)
[2018-05-19] MEDS: PRENATAL VITAMINS W/ FOLIC ACID TABLET (FP) PO SCH (11:08)
--- NOTE | 2018-05-19 11:22 | PN ---
S Progress Note (SOAP) Subjective: PT C/O IRRITABILITY, TREMORS, ANXIETY,SWEATS, BODY ACHES. LAST LIBRIUM 10 MG TAPERS BUT REQUESTING VALIUM TAPER TODAY. Objective: 05/19/18 12:35 Vital Signs 05/19/18 05/19/18 06:18 09:50 Temperature 97 F L 98.2 F Pulse Rate 67 83 Respiratory 18 20 Rate Blood Pressure 105/63 103/71 Laboratory Tests 05/16/18 05/16/18 05/16/18 07:00 07:00 07:00 WBC 5.5 RBC 4.31 Hgb 11.7 Hct 36.7 MCV 85.0 MCH 27.2 MCHC 32.0 RDW 16.1 H Plt Count 137 MPV 7.3 L Sodium 141 Potassium 4.0 Chloride 103 Carbon Dioxide 28 Anion Gap 10 BUN 20 H Creatinine 1.5 H Creat Clearance w eGFR 52.10 Random Glucose 104 Calcium 8.2 L Total Bilirubin 0.5 AST 33 ALT 24 Alkaline Phosphatase 112 Total Protein 7.0 Albumin 3.6 RPR Titer HIV 1&2 Antibody Screen Negative HIV P24 Antigen Negative 05/16/18 05/18/18 07:00 06:30 WBC RBC Hgb Hct MCV MCH MCHC RDW Plt Count MPV Sodium 140 Potassium 4.2 Chloride 103 Carbon Dioxide 26 Anion Gap 10 BUN 21 H Creatinine 1.3 Creat Clearance w eGFR > 60 Random Glucose 85 Calcium 8.4 L Total Bilirubin AST ALT Alkaline Phosphatase Total Protein Albumin RPR Titer Nonreactive HIV 1&2 Antibody Screen HIV P24 Antigen Assessment: 05/19/18 12:36 WITHDRAWAL SX Plan: CONTINUE DETOX VISTARIL 50 MG PO Q4H PRN FOR ANXIETY. FLEXERIL 10 MG PO TID DIRECTED
[2018-05-19] MEDS: CYCLOBENZAPRINE HCL 10 MG TABLET (FP) PO SCH ×2 (14:12→22:49)
[2018-05-19] MEDS: THIAMINE HCL 100 MG TABLET (FP) PO SCH (22:49)
[2018-05-20] MEDS: CYCLOBENZAPRINE HCL 10 MG TABLET (FP) PO SCH ×3 (07:24→22:44)
[2018-05-20] MEDS: hydrOXYzine PAMOATE 50 MG CAPSULE (FP) PO PRN (10:29)
[2018-05-20] MEDS: BACITRACIN 0.9 GM PACKET TP SCH ×2 (10:30→22:44)
[2018-05-20] MEDS: cloNIDine HCL 0.1 MG TABLET PO SCH (10:30)
[2018-05-20] MEDS: DULoxetine HCL 60 MG CAPSULE.DR PO SCH (10:30)
[2018-05-20] MEDS: PRENATAL VITAMINS W/ FOLIC ACID TABLET (FP) PO SCH (10:30)
[2018-05-20] MEDS: amLODIPine BESYLATE 2.5 MG TABLET (FP) PO SCH (10:30)
[2018-05-20] MEDS: IBUPROFEN 400 MG TABLET (FP) PO PRN ×2 (11:04→16:43)
--- NOTE | 2018-05-20 16:10 | PN ---
[facility] Progress Note (SOAP) Subjective: Patient scheduled for discharge today but complained of still having withdrawal symptoms: anxious, restless, sweating, interrupted sleep. As per patient, his counselor scheduled him to be admitted to [facility] rehab tomorrow and he feels that he will relapse if he goes home today. Patient aware he will stay today and be discharged tomorrow to [place] rehab. Patient to have family member or friend pick him up or take public transportation to there. Objective: 05/20/18 16:09 Last Vital Signs Temp Pulse Resp BP Pulse Ox 98.9 F 91 H 22 H 97/60 05/20/18 14:45 05/20/18 14:45 05/20/18 14:45 05/20/18 14:45 Hypotension noted Laboratory Tests 05/16/18 05/16/18 05/16/18 07:00 07:00 07:00 WBC 5.5 RBC 4.31 Hgb 11.7 Hct 36.7 MCV 85.0 MCH 27.2 MCHC 32.0 RDW 16.1 H Plt Count 137 MPV 7.3 L Sodium 141 Potassium 4.0 Chloride 103 Carbon Dioxide 28 Anion Gap 10 BUN 20 H Creatinine 1.5 H Creat Clearance w eGFR 52.10 Random Glucose 104 Calcium 8.2 L Total Bilirubin 0.5 AST 33 ALT 24 Alkaline Phosphatase 112 Total Protein 7.0 Albumin 3.6 RPR Titer HIV 1&2 Antibody Screen Negative HIV P24 Antigen Negative 05/16/18 05/18/18 07:00 06:30 WBC RBC Hgb Hct MCV MCH MCHC RDW Plt Count MPV Sodium 140 Potassium 4.2 Chloride 103 Carbon Dioxide 26 Anion Gap 10 BUN 21 H Creatinine 1.3 Creat Clearance w eGFR > 60 Random Glucose 85 Calcium 8.4 L Total Bilirubin AST ALT Alkaline Phosphatase Total Protein Albumin RPR Titer Nonreactive HIV 1&2 Antibody Screen HIV P24 Antigen Labs reviewed: prerenal azotemia noted Assessment: 05/20/18 16:10 Continue detox Noted with hypotension and prerenal azotemia Plan: Continue detox Patient scheduled for discharge tomorrow and accepted referral to [facility] inpatient Rehab tomorrow Hypotension: asymptomatic, encouraged to drink more water, continue to monitor Prerenal azotemia: encouraged PO water hydration
[2018-05-20] MEDS: THIAMINE HCL 100 MG TABLET (FP) PO SCH (22:44)
[2018-05-21] MEDS: CYCLOBENZAPRINE HCL 10 MG TABLET (FP) PO SCH (06:59)
[2018-05-21 09:03] VITALS: BP 116/79; PULSE 108; TEMP 97.9
--- NOTE | 2018-05-21 09:28 | DS ---
[facility] Detox Discharge Summary Admission Date: 05/15/18 Discharge Date: 05/21/18 - History Present History: Alcohol Dependence Additional Comments: 38 years old male admitted on 05/16/18 for alcohol withdrawal sx completed detox regimen tolerate well alert no acute distress aftercare [facility] - Physical Exam Results Vital Signs: Vital Signs Temperature 97.9 F 05/21/18 09:02 Pulse Rate 108 H 05/21/18 09:02 Respiratory Rate 18 05/21/18 09:02 Blood Pressure 116/79 05/21/18 09:02 O2 Sat by Pulse Oximetry (%) Pertinent Admission Physical Exam Findings: alcohol withdrawal sx Vital Signs Temperature 97.9 F 05/21/18 09:02 Pulse Rate 108 H 05/21/18 09:02 Respiratory Rate 18 05/21/18 09:02 Blood Pressure 116/79 05/21/18 09:02 O2 Sat by Pulse Oximetry (%) Laboratory Last Values WBC 5.5 K/mm3 (4.0-10.0) 05/16/18 07:00 RBC 4.31 M/mm3 (4.00-5.60) 05/16/18 07:00 Hgb 11.7 GM/dL (11.7-16.9) 05/16/18 07:00 Hct 36.7 % (35.4-49) 05/16/18 07:00 MCV 85.0 fl (80-96) 05/16/18 07:00 MCH 27.2 pg (25.7-33.7) 05/16/18 07:00 MCHC 32.0 g/dl (32.0-35.9) 05/16/18 07:00 RDW 16.1 % (11.9-15.9) H 05/16/18 07:00 Plt Count 137 K/MM3 (134-434) 05/16/18 07:00 MPV 7.3 fl (7.5-11.1) L 05/16/18 07:00 Sodium 140 mmol/L (136-145) 05/18/18 06:30 Potassium 4.2 mmol/L (3.5-5.1) 05/18/18 06:30 Chloride 103 mmol/L (98-107) 05/18/18 06:30 Carbon Dioxide 26 mmol/L (21-32) 05/18/18 06:30 Anion Gap 10 MMOL/L (8-16) 05/18/18 06:30 BUN 21 mg/dL (7-18) H 05/18/18 06:30 Creatinine 1.3 mg/dL (0.55-1.3) 05/18/18 06:30 Creat Clearance w eGFR > 60 (>60) 05/18/18 06:30 Random Glucose 85 mg/dL (74-106) 05/18/18 06:30 Calcium 8.4 mg/dL (8.5-10.1) L 05/18/18 06:30 Total Bilirubin 0.5 mg/dL (0.2-1) 05/16/18 07:00 AST 33 U/L (15-37) 05/16/18 07:00 ALT 24 U/L (13-61) 05/16/18 07:00 Alkaline Phosphatase 112 U/L (45-117) 05/16/18 07:00 Total Protein 7.0 g/dl (6.4-8.2) 05/16/18 07:00 Albumin 3.6 g/dl (3.4-5.0) 05/16/18 07:00 RPR Titer Nonreactive (NONREACTIVE) 05/16/18 07:00 HIV 1&2 Antibody Screen Negative 05/16/18 07:00 HIV P24 Antigen Negative 05/16/18 07:00 lab noted - Treatment Hospital Course: Detox Protocol Followed, Detoxed Safely, Responded well, Discharged Condition Good, Rehab Referral Accepted Patient has Accepted a Rehab Referral to: [facility] - Medication Discharge Medications: Ambulatory Orders Amlodipine Besylate [Norvasc -] 2.5 mg PO DAILY 02/18/18 Duloxetine HCl [Cymbalta] 120 mg PO DAILY 02/18/18 - Diagnosis (1) Alcohol dependence with uncomplicated withdrawal Current Visit: Yes Status: Acute (2) Nicotine dependence Current Visit: Yes Status: Acute Qualifiers: Nicotine product type: cigarettes Substance use status: in withdrawal Qualified Code(s): F17.213 - Nicotine dependence, cigarettes, with withdrawal (3) HTN (hypertension) Current Visit: Yes Status: Chronic Qualifiers: Hypertension type: essential hypertension Qualified Code(s): I10 - Essential (primary) hypertension - AMA Did Patient Leave Against Medical Advice: No
[2018-05-21] MEDS: PRENATAL VITAMINS W/ FOLIC ACID TABLET (FP) PO SCH (10:14)
[2018-05-21] MEDS: cloNIDine HCL 0.1 MG TABLET PO SCH (10:14)
[2018-05-21] MEDS: DULoxetine HCL 60 MG CAPSULE.DR PO SCH (10:15)
[2018-05-21] MEDS: ACETAMINOPHEN 325 MG TABLET (FP) PO PRN (10:15)
[2018-05-21] MEDS: BACITRACIN 0.9 GM PACKET TP SCH (10:15)
[2018-05-21] MEDS: amLODIPine BESYLATE 2.5 MG TABLET (FP) PO SCH (10:15)
[2018-05-21] MEDS: hydrOXYzine PAMOATE 50 MG CAPSULE (FP) PO PRN (10:15)
== END 2018-05-21 12:05 | disposition home or self-care (01) | DRG 897 ==
LOC: YASAS 15:30 → Y3N 21:55
PROC: HZ2ZZZZ Detoxification Services for Substance Abuse Treatment (ICD-10-PCS; principal; 2018-05-15)
DX: F10.230 Alcohol dependence with withdrawal, uncomplicated (principal); F33.9 Major depressive disorder, recurrent, unspecified; N17.9 Acute kidney failure, unspecified; F12.20 Cannabis dependence, uncomplicated; F17.210 Nicotine dependence, cigarettes, uncomplicated; F19.24 Other psychoactive substance dependence with psychoactive substance-induced mood disorder; I10 Essential (primary) hypertension; D69.6 Thrombocytopenia, unspecified; G47.00 Insomnia, unspecified; I95.9 Hypotension, unspecified; R79.89 Other specified abnormal findings of blood chemistry; S60.511A Abrasion of right hand, initial encounter; S80.211A Abrasion, right knee, initial encounter; W19.XXXA Unspecified fall, initial encounter; Y93.89 Activity, other specified; Y92.89 Other specified places as the place of occurrence of the external cause; Y99.8 Other external cause status; Z86.718 Personal history of other venous thrombosis and embolism; Z86.711 Personal history of pulmonary embolism; Z85.118 Personal history of other malignant neoplasm of bronchus and lung; Z85.47 Personal history of malignant neoplasm of testis; Z95.828 Presence of other vascular implants and grafts; Z90.79 Acquired absence of other genital organ(s); Z90.2 Acquired absence of lung [part of]
CPT/HCPCS: 36415; 80048; 80053; 85027; 86593; 87389; J0735